=== PATIENT | female | born 1985 | race Caucasian/White ===

== ENCOUNTER 2020-01-26 19:48 | Emergency (ER) | payer BC ==
[2020-01-26] MEDS ORDERED: Sodium Chloride 0.9% 2.5 ML Syringe FLUSH PRN (19:50)
[2020-01-26] MEDS ORDERED: Sodium Chloride 0.9% 10 ML Syringe FLUSH PRN (19:50)
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
[2020-01-26 20:18] LABS: BLOOD UREA NITROGEN,BUN 16 mg/dL (7.0-18.0); CHLORIDE,CL 105 mmol/L (98-107); GLUCOSE RANDOM 129 mg/dL (74-106); LIPASE 81 U/L (73-393); POTASSIUM,K 3.7 mmol/L (3.5-5.1); SODIUM,NA 138 mmol/L (136-145)
--- NOTE | 2020-01-26 20:40 | CR ---
Pelvis: AP view of the pelvis was obtained. Comparison: No previous pelvis study is available. Joint spaces within both hips are maintained. Sacroiliac joints appear normal. No discrete fracture or other bony abnormality is seen. IUD is present within the pelvis. Impression: 1. IUD. 2. Nothing acute is definitely appreciated on AP pelvis study. Diagnostic code #2 This report was dictated in MDT
--- NOTE | 2020-01-26 20:42 | CT ---
CT cervical spine Technique: Multiple axial sections were obtained from above C1 inferiorly to the top of T2. Reconstructed sagittal and coronal images were reviewed. Findings: Incomplete posterior arch is noted of C1 which is considered a normal variant. Vertebral body heights and disc spaces are maintained. Vertebral bodies and posterior arches are intact. No bony central or bony neural foraminal stenosis is seen. No fracture is appreciated. Impression: 1. Incomplete posterior arch of C1 which is felt to be incidental. 2. Nothing acute is appreciated on CT study of the cervical spine. Diagnostic code #2 This report was dictated in MDT
[2020-01-26] MEDS ORDERED: Iopamidol 755 Mg/ML 100 ML Bottle IVPUSH ONE (20:45)
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
--- NOTE | 2020-01-26 20:49 | CT ---
Head CT Technique: Multiple axial sections through the brain were obtained. Intravenous contrast was not utilized. Findings: Scalp hematoma is noted with in the right temporal and parietal region. Ventricles along with basal cisterns and sulci over the convexities appear within normal limits for the patient's age. No abnormal parenchymal densities are seen. No evidence of intracranial hemorrhage. No midline shift or mass-effect is seen. Bone window settings were reviewed. Visualized mastoid sinuses and paranasal sinuses show nothing acute. No acute calvarial finding is seen. Impression: 1. Scalp hematoma on the right side. 2. No acute intracranial abnormality or discrete skull abnormality is appreciated. Diagnostic code #3 This report was dictated in MDT
[2020-01-26] MEDS ORDERED: Morphine 4 MG/ML Syringe IVPUSH ONE (20:58)
[2020-01-26] MEDS ORDERED: Ondansetron 4 MG/2 ML SDV IVPUSH ONE (20:58)
[2020-01-26 20:59] VITALS: BP 120/53; PULSE 85
[2020-01-26] MEDS ORDERED: Sodium Chloride 0.9% 1,000 ML IV SCH (21:45)
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
--- NOTE | 2020-01-27 13:17 | CR ---
EXAM DATE: 01/26/20 PATIENT'S AGE: 34 Chest: Portable view of the chest was obtained. Comparison: No previous chest imaging. Heart size and mediastinum are normal. Lungs are clear with no acute parenchymal change. Bony structures are grossly intact. Impression: 1. Nothing acute is seen on portable chest x-ray. Diagnostic code #1 This report was dictated in MDT Report Signed by Proxy. NAILA
== END 2020-01-26 22:40 ==
LOC: MW.ED 19:48
DX: S00.03XA Contusion of scalp, initial encounter (principal); S36.112A Contusion of liver, initial encounter; S36.029A Unspecified contusion of spleen, initial encounter; Z86.11 Personal history of tuberculosis; V86.69XA Passenger of other special all-terrain or other off-road motor vehicle injured in nontraffic accident, initial encounter
CPT/HCPCS: 36415; 70450; 71045; 72125; 72170; 73030; 74177; 80053; 81001; 83690; 84703; 85025; 86850; 86900; 86901; 93005; 96361; 96374; 96375; 99285; J2270; J2405; J7030; Q9967

== ENCOUNTER 2020-02-28 22:21 | Emergency (ER) | payer BC ==
[2020-02-28] MEDS ORDERED: Sodium Chloride 0.9% 2.5 ML Syringe FLUSH PRN (22:32)
[2020-02-28] MEDS ORDERED: Sodium Chloride 0.9% 10 ML Syringe FLUSH PRN (22:32)
[2020-02-28] MEDS ORDERED: Lactated Ringers 1,000 ML IV ONE (23:14)
[2020-02-28] MEDS ORDERED: fentaNYL 50 MCG/ML SDV IVPUSH ONE (23:15)
[2020-02-28 23:27] LABS: BLOOD UREA NITROGEN,BUN 9 mg/dL (7.0-18.0); CARBON DIOXIDE,CO2 24.3 mmol/L (21.0-32.0); CHLORIDE,CL 103 mmol/L (98-107); GLUCOSE RANDOM 102 mg/dL (74-106); LIPASE 126 U/L (73-393); POTASSIUM,K 3.9 mmol/L (3.5-5.1); SODIUM,NA 138 mmol/L (136-145)
[2020-02-28] MEDS ORDERED: Iopamidol 755 Mg/ML 100 ML Bottle IVPUSH STA (23:56)
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
--- NOTE | 2020-02-29 01:14 | CT ---
INDICATION: Right lower quadrant pain. Status post bowel resection. COMPARISON: 01/26/2020 TECHNIQUE: CT examination of the abdomen and pelvis was performed with the uneventful intravenous administration of 100 cc of Isovue 370 while 3 mm thick axial sections were obtained from the lung bases through the pubic symphysis. Oral contrast was not administered. Please note that all CT scans at this facility use dose modulation, iterative reconstruction, and/or weight-based dosing when appropriate to reduce radiation dose to as low as reasonably achievable. FINDINGS: The previously seen moderate free fluid in the abdomen has resolved. There is a tiny amount of free fluid in the right pelvis, markedly decreased compared to the previous study. There are no focal fluid collections in the abdomen or pelvis to suggest hematomas or abscess. There is new inflammatory stranding in the periumbilical region, consistent with access for abdominal surgery. Again seen is the small fat containing periumbilical hernia. There is a new small fluid collection with small bubbles of gas located in the deep subcutaneous fat to the left of a new infraumbilical anterior pelvic wall midline incision, consistent with a small abscess. This measures 2.2 x 2.0 by 2.8 centimeters. In the abdomen, the liver, spleen, pancreas, and ADRENALS are normal in appearance. The kidneys are normal in appearance. The gallbladder is normal in appearance. The abdominal aorta is normal in caliber with no sign of dilatation. There is no sign of retroperitoneal mass or adenopathy. There is a stable tiny hiatal hernia. The rest of the stomach, loops of small bowel, and colon in the abdomen are otherwise normal in appearance. In the pelvis, the appendix is normal in appearance with no sign of inflammatory process. There is a new small bowel anastomosis in the central Bili cul upper pelvis with no sign of any stricture or leak. The rest of the loops of small bowel and colon in the pelvis are normal in appearance. The uterus is again seen to have satisfactory positioning of a T-shaped intrauterine device in the superior fundus. It is otherwise normal in appearance. There is normal appearance of the adnexal regions normal in appearance. The urinary bladder is normal in appearance. There is no sign of pelvic or inguinal mass or adenopathy. There is no sign of free air or free fluid in the abdomen or pelvis. The lung bases are clear. The osseous structures are normal in appearance for the patient`s age. IMPRESSION: Status post midline incision in the anterior upper pelvic wall with small abscess located within the deep subcutaneous fat to the left of the incision in the infraumbilical region measuring 2.2 x 2.[address] of the abdomen shows resolution of previously seen moderate free fluid. No other abnormality seen in the abdomen.. CT of the pelvis shows near complete resolution of free fluid, with a small amount of fluid seen in the right cul-de-sac. Satisfactory appearance of small bowel anastomosis with no sign of stricture or bowel leak. Continued satisfactory positioning of T-shaped intrauterine device. Please note that all CT scans at this facility use dose modulation, iterative reconstruction, and/or weight-based dosing when appropriate to reduce radiation dose to as low as reasonably achievable. Dictated by Robin Douglas MD @ Feb 29 2020 1:00AM Signed by Dr. Robin Douglas @ Feb 29 2020 1:12AM
[2020-02-29 01:48] VITALS: BP 119/74; PULSE 79
== END 2020-02-29 01:45 | disposition home or self-care (01) ==
LOC: MW.ED 22:21
DX: T81.49XA Infection following a procedure, other surgical site, initial encounter (principal); L02.211 Cutaneous abscess of abdominal wall
CPT/HCPCS: 36415; 74177; 80053; 81001; 83605; 83690; 84703; 85025; 96361; 96374; 99284; J3010; J7120; Q9967

== ENCOUNTER 2024-04-29 11:58 | Emergency (ER) | payer OTHER ==
[2024-04-29 13:10] VITALS: BP 126/64; PULSE 78
[2024-04-29] MEDS: predniSONE 10 MG Tab PO ONE (13:48)
[2024-04-29] MEDS ORDERED: Famotidine 20 MG Tab ONE (13:48)
[2024-04-29] MEDS ORDERED: predniSONE 10 MG Tab ONE (13:48)
[2024-04-29] MEDS: Famotidine 20 MG Tab PO ONE (13:48)
== END 2024-04-29 14:06 | disposition home or self-care (01) ==
LOC: MW.ED 11:58
DX: L50.0 Allergic urticaria (principal)
CPT/HCPCS: 99283; A9270